=== PATIENT | male | born 2000 | race Two or more races ===

== ENCOUNTER 2024-05-25 17:58 | Emergency (ER) | payer BC, OTHER ==
[~2024-05-25] VITALS: Ht 167.6 cm; Wt 91.7 kg
[2024-05-25 18:39] VITALS: BP 116/78
[2024-05-25] MEDS: ACETAMINOPHEN 325 MG TAB PO ONE (19:03)
[2024-05-25] MEDS ORDERED: PRED20TA2 PO (19:40)
[2024-05-25] MEDS ORDERED: AMOX875T4 PO (19:40)
[2024-05-25] MEDS ORDERED: ACET500T58 PO (19:40)
--- NOTE | 2024-05-25 19:40 | ED.PDOC ---
History of Present Illness HPI Comments 24-year-old male presents to ER with complaints of cough x3 days. Patient reports he has been experiencing mild cough, congestion, sore throat, intermittent fever and intermittent nausea/vomiting x3 days. Reports that he has been using [id number] "cold and flu" medication without relief. Patient presents to ER febrile on arrival at 101.4 F, ambulatory, with steady gait, in no distress. Denies shortness of breath, chest pain, known exposure to sick contacts, headache, dizziness, abdominal pain, changes in urination/BM or any further symptoms/complaints Chief Complaint: Flu like Time Seen by MD: 18:11 Primary Care Provider: UNKNOWN Reviewed Notes: Nurses Notes, Medications, Allergies Information Source: Patient Past Medical History Past Medical History (Other): Lumbar spinal fractures Thoracic spinal fractures Surgical History: Denies all surgeries Family History Family History: Unknown Social History Smoker: Cigarettes, Less Than 1 Pack/Day Alcohol: Denies ETOH Use Drugs: Denies Drug Use Lives In: Home Constitutional: See HPI EENTM: See HPI Respiratory: See HPI Cardiovascular: No Symptoms Reported Gastrointestinal: See HPI Genitourinary: No Symptoms Reported Neurological: No Symptoms Reported Musculoskeletal: No Symptoms Reported Integumentary: No Symptoms Reported Allergic/Immunocompromised: others (DENIES) Hematologic/Lymphatic: No Symptoms Reported Endocrine: No Symptoms Reported Psychiatric: No symptoms Reported Physical Exam General Appearance: No Apparent Distress, Obese HEENT: PERRL/EOMI, Pharyngeal Erythema (MILD TONSILLAR SWELLING/ERYTHEMA NOTED BILATERALLY WITHOUT EXUDATES. UVULA-NORMAL), TMs Normal Neck: Full Range of Motion, Non-Tender, Normal Respiratory: Chest Non-Tender, Lungs Clear, No Accessory Muscle Use, No Respiratory Distress, Normal Breath Sounds Cardiovascular: No Murmur, No Gallop, Tachycardia Breast Exam: Deferred Gastrointestinal: Non Tender, No Pulsatile Mass, Soft Genitalia: Deferred Pelvic: Deferred Rectal: Deferred Extremities: Normal capillary refill, Normal range of motion Neurologic: Alert, commercial specialist II-XII nml as Tested, No Motor Deficits, Normal Affect, Normal Mood, No Sensory Deficits Cerebellar Function: Normal Reflexes: Normal Skin: Dry, Normal Color, Warm Lymphatic: No Adenopathy Was a procedure done? Was a procedure done?: No Sedation Sedation?: No Fever Differential Dx Differential Diagnosis: Pneumonia, Sepsis, Pharyngitis X-Ray, Labs, Meds, VS Vital Signs Date Time Temp Pulse Resp B/P (MAP) Pulse Ox O2 Delivery O2 Flow Rate FiO2 05/25/24 19:46 99.2 110 18 95 99.2 05/25/24 19:03 101.4 05/25/24 18:39 101.4 122 18 116/78 (91) 96 101.4 Current Medications Medications (Trade) Dose Ordered Sig/Barrett Route Start Time Stop Time Status Last Admin Acetaminophen (Tylenol Tablet) 650 mg ONCE ONCE PO 05/25/24 18:45 05/25/24 18:46 DC 05/25/24 19:03 TYLENOL 650 MG P.O. ORDERED PATIENT HAD IMPROVEMENT IN SYMPTOMS, TOLERATING P.O. INTAKE WELL AND IN NO DISTRESS PRIOR TO DISCHARGE DIET EDUCATION DISCUSSED SMOKING CESSATION DISCUSSED AND ADVISED ADVISED TO FOLLOW UP WITH PCP IN 1-2 DAYS PATIENT VERBALIZED UNDERSTANDING AND AGREEABLE WITH CURRENT PLAN OF CARE ADVISED TO RETURN TO ER IMMEDIATELY IF SYMPTOMS WORSEN Time of 1ST Reevaluation: 19:12 Reevaluation 1ST: N/A Patient Education/Counseling: Diagnosis, Treatment, Prognosis, Need For Follow Up Family Education/Counseling: No Family Present Departure 1 Departure Time of Disposition: 19:32 Impression: Primary Impression: Upper respiratory infection Qualified Codes: J06.9 - Acute upper respiratory infection, unspecified Additional Impression: Viral gastroenteritis Disposition: HOME / SELF CARE / HOMELESS Condition: Stable e-Prescriptions Prednisone (Prednisone) 20 Mg Tab 20 MG PO BID for 5 Days, #10 TAB 0 Refills Prov: DOLORES CARBALLO 05/25/24 Acetaminophen (Acetaminophen) 500 Mg Tab 500 MG PO Q4HPRN, #30 TAB 0 Refills Prov: DOLORES CARBALLO 05/25/24 Amoxicillin & Pot Clavulanate (Amoxicillin/Potassium Cla) 875 Mg Tab 1 TAB PO BID for 7 Days, #14 TAB 0 Refills Prov: DOLORES CARBALLO 05/25/24 Discharged With: Self Critical Care Note Critical Care Time?: No Stability Stability form required: No Heart Score Heart Score: Heart Score Response (Comments) Value History N/A 0 EKG N/A 0 Age N/A 0 Risk Factors N/A 0 Troponin N/A 0 Total 0 DOLORES CARBALLO May 25, 2024 19:40
[2024-05-25 19:46] VITALS: PULSE 110; RESP 18; TEMP 99.2; O2SAT 95
== END 2024-05-25 20:10 | disposition home or self-care (01) ==
LOC: ER 17:58
DX: J06.9 Acute upper respiratory infection, unspecified (principal); A08.4 Viral intestinal infection, unspecified; F17.210 Nicotine dependence, cigarettes, uncomplicated